=== PATIENT | female | born 1950 | race Caucasian/White ===

== ENCOUNTER 2018-02-03 16:31 | Inpatient (IN) | payer MEDICARE, MEDICAID ==
[~2018-02-03] VITALS: Ht 149.9 cm; Wt 54.9 kg
[~2018-02-03 16:31] MED LIST: CITA10TA68 PO; LEVO250 PO; LURA40 PO
[2018-02-03] MEDS ORDERED: SERT50TA12 PO (18:01)
[2018-02-03] MEDS ORDERED: OXYC10 PO (18:01)
[2018-02-03] MEDS ORDERED: TRAZ-144 PO (18:01)
[2018-02-03 18:44] LABS: APPEARANCE,URINE CLEAR (CLEAR); BILIRUBIN,URINE NEGATIVE (NEGATIVE); GLUCOSE, URINE (UA) NEGATIVE (NEGATIVE); KETONES,URINE 15 mg/dL (NEGATIVE); LEUKOCYTE ESTERASE ,URINE SMALL (NEGATIVE); NITRATE,URINE NEGATIVE (NEGATIVE); OCCULT BLOOD,URINE NEGATIVE (NEGATIVE); PH,URINE 5.5 (5.0-8.0); PROTEIN,URINE NEGATIVE (NEGATIVE); UROBILINOGEN,URINE 0.2 mg/dL (<=1.0)
[2018-02-03 18:45] LABS: BASOPHILS % (AUTO) 0.5 % (0.0-2.0); EOSINOPHILS % (AUTO) 1.2 % (1.0-6.0); HEMOGLOBIN 12.3 g/dL (12.0-16.0); LYMPHOCYTES # (AUTO) 1.5 K/uL (1.0-4.8); LYMPHOCYTES % (AUTO) 11.3 % (22.0-44.0); MEAN CORPUSCULAR HEMOGLOBIN 27.8 pg (26.0-34.0); MEAN CORPUSCULAR HGB CONC 33.3 G/dL (31.0-37.0); MEAN CORPUSCULAR VOLUME 83 fL (80-100); MONOCYTES # (AUTO) 0.7 K/uL (0.1-1.0); MONOCYTES % (AUTO) 5.5 % (2.0-9.0); NEUTROPHILS # (AUTO) 10.7 K/uL (1.8-7.7); NEUTROPHILS % (AUTO) 81.5 % (40.0-70.0); PLATELET COUNT (AUTO) 274 K/uL (150-450); RED BLOOD CELL COUNT(AUTO) 4.44 MIL/uL (4.00-5.20)
[2018-02-03 18:50] LABS: AMPHET/METH SCREEN,URINE POSITIVE (NEGATIVE); BARBITURATE SCREEN, URINE NEGATIVE (NEGATIVE); BENZODIAZEPINES SCREEN,URINE POSITIVE (NEGATIVE); CANNABINOID SCREEN,URINE NEGATIVE (NEGATIVE); COCAINE SCREEN,URINE NEGATIVE (NEGATIVE); METHADONE SCREEN, URINE NEGATIVE (NEGATIVE); OPIATE SCREEN,URINE NEGATIVE (NEGATIVE)
[2018-02-03 18:51] LABS: ANION GAP 10 mmol/L (8-16); CALCIUM, TOTAL 8.7 mg/dL (8.8-10.5); CARBON DIOXIDE 24 mmol/L (22-29); CHLORIDE 104 mmol/L (98-107); CREATININE 0.75 mg/dL (0.60-1.30); GLOMERULAR FILTR. RATE CALC > 60 mL/min (>60); GLUCOSE,RANDOM 115 mg/dL (70-110); POTASSIUM 3.2 mmol/L (3.5-5.1); SODIUM SERUM 138 mmol/L (136-145); UREA NITROGEN, BLOOD 14 mg/dL (7-18)
[2018-02-03 18:54] LABS: PHENCYCLIDINE SCREEN,URINE NEGATIVE (NEGATIVE)
[2018-02-03 18:56] LABS: ALANINE AMINOTRANSFERASE 26 U/L (12-78); ALBUMIN 3.6 g/dL (3.4-5.0); ALKALINE PHOSPHATASE 115 U/L (46-116); ASPARTATE AMINOTRANSFERASE 25 U/L (15-37); BILIRUBIN,TOTAL 0.6 mg/dL (0.1-1.0)
[2018-02-03 18:56] LABS: BACTERIA,URINE Rare /HPF (None Seen); RBC,URINE 0-2 /HPF (0-2); SQUAMOUS EPITHELIAL CELL,UR Few /LPF (None Seen)
[2018-02-03] MEDS ORDERED: POTASSIUM CHLORIDE 20 MEQ ER TABLET PO ONE (20:30)
[2018-02-03] MEDS ORDERED: ACETAMINOPHEN 325 MG TABLET PO PRN (21:45)
[2018-02-03] MEDS ORDERED: LORazepam 2 MG TABLET PO PRN (21:45)
[2018-02-03] MEDS ORDERED: MAGNESIUM HYDROXIDE SUSPENSION 30 ML UDCUP PO PRN (21:45)
[2018-02-03] MEDS ORDERED: MAG HYDROX/AL HYDROX/SIMETH ES 30 ML SUSPENSION UDCUP PO PRN (21:45)
[2018-02-03] MEDS ORDERED: HALOPERIDOL 5 MG TABLET PO PRN (21:45)
[2018-02-03] MEDS ORDERED: ZOLPIDEM TARTRATE 10 MG TABLET PO PRN (21:45)
[2018-02-03 22:41] VITALS: BP 102/64
[2018-02-04 03:30] VITALS: BP 112/67
[2018-02-04 07:19] LABS: CHOL/HDL RATIO 1.6 (3.9-5.7); POTASSIUM 4.5 mmol/L (3.5-5.1)
[2018-02-04] MEDS: CIPROFLOXACIN HCL 250 MG TABLET PO SCH ×2 (09:02→16:29)
[2018-02-04] MEDS ORDERED: IBUPROFEN 400 MG TABLET PO PRN (09:15)
[2018-02-04] MEDS ORDERED: ACETAMINOPHEN 325 MG TABLET PO PRN (09:15)
[2018-02-04 10:15] VITALS: BP 106/57
[2018-02-04] MEDS: TraZODone HCL 50 MG TABLET PO SCH (16:29)
[2018-02-04 19:06] VITALS: BP 94/60
[2018-02-04] MEDS: OLANZapine 10 MG TABLET PO SCH (20:38)
[2018-02-05 06:36] LABS: BASOPHILS % (AUTO) 0.8 % (0.0-2.0); EOSINOPHILS % (AUTO) 5.1 % (1.0-6.0); HEMATOCRIT 39.3 % (36-46); HEMOGLOBIN 13.2 g/dL (12.0-16.0); LYMPHOCYTES # (AUTO) 2.3 K/uL (1.0-4.8); LYMPHOCYTES % (AUTO) 22.6 % (22.0-44.0); MEAN CORPUSCULAR HEMOGLOBIN 28.4 pg (26.0-34.0); MEAN CORPUSCULAR HGB CONC 33.5 G/dL (31.0-37.0); MEAN CORPUSCULAR VOLUME 85 fL (80-100); MONOCYTES # (AUTO) 0.5 K/uL (0.1-1.0); MONOCYTES % (AUTO) 5.3 % (2.0-9.0); NEUTROPHILS # (AUTO) 6.8 K/uL (1.8-7.7); NEUTROPHILS % (AUTO) 66.2 % (40.0-70.0); PLATELET COUNT (AUTO) 256 K/uL (150-450); RED BLOOD CELL COUNT(AUTO) 4.64 MIL/uL (4.00-5.20); RED CELL DISTRIBUTION WIDTH 15.5 % (11.5-14.5)
[2018-02-05 06:59] LABS: THYROID STIMULATING HORMONE 1.26 uIU/mL (0.36-3.74)
[2018-02-05 07:06] LABS: HEMOGLOBIN A1C 6.4 % (4.5-6.2)
[2018-02-05] MEDS: TraZODone HCL 50 MG TABLET PO SCH ×2 (10:30→17:16)
[2018-02-05] MEDS: CIPROFLOXACIN HCL 250 MG TABLET PO SCH ×2 (10:31→17:16)
[2018-02-05] MEDS: SERTRALINE HCL 100 MG TABLET PO SCH (10:31)
[2018-02-05 11:10] VITALS: BP 107/68
[2018-02-05 18:29] VITALS: BP 113/73
[2018-02-05] MEDS: OLANZapine 10 MG TABLET PO SCH (21:33)
[2018-02-06] MEDS: SERTRALINE HCL 100 MG TABLET PO SCH (08:32)
[2018-02-06] MEDS: TraZODone HCL 50 MG TABLET PO SCH (08:32)
[2018-02-06] MEDS: CIPROFLOXACIN HCL 250 MG TABLET PO SCH (08:32)
[2018-02-06 09:53] VITALS: BP 97/60
[2018-02-06] MEDS ORDERED: OLAN10TA3 PO (12:15)
[2018-02-06] MEDS ORDERED: CIP250 PO (12:15)
== END 2018-02-06 16:05 | disposition home or self-care (01) | DRG 885 ==
LOC: EMS 16:33 → 3EX 22:00
PROVIDERS: ADMIT Psychiatry & Neurology Psychiatry; ATTEND Psychiatry & Neurology Psychiatry
DX: F29 Unspecified psychosis not due to a substance or known physiological condition (principal); I95.9 Hypotension, unspecified; F33.2 Major depressive disorder, recurrent severe without psychotic features; E83.51 Hypocalcemia; F20.9 Schizophrenia, unspecified; Z91.14 Patient's other noncompliance with medication regimen; N39.0 Urinary tract infection, site not specified; F15.10 Other stimulant abuse, uncomplicated; E78.00 Pure hypercholesterolemia, unspecified; E87.6 Hypokalemia; I10 Essential (primary) hypertension; F17.210 Nicotine dependence, cigarettes, uncomplicated; Z79.899 Other long term (current) drug therapy; Z88.5 Allergy status to narcotic agent; Z80.0 Family history of malignant neoplasm of digestive organs; Z71.51 Drug abuse counseling and surveillance of drug abuser
CPT/HCPCS: 83036; 84132; 84443; 87086; 99285; G0480